=== PATIENT | male | born 1955 | race Caucasian/White ===

== ENCOUNTER 2019-03-23 15:41 | Outpatient (CLI) | payer BC ==
--- NOTE | 2019-03-23 16:15 | RAD ---
2 view chest: [03/23/2019] Comparion:None available HISTORY: Shortness of breath FINDINGS: There is mild increased linear interstitial density with pulmonary hyperinflation, evidence of COPD in the proper clinical setting. No pneumothorax, pleural fluid, lobar consolidation, or alveolar edema. IMPRESSION: Chronic-appearing findings as described above. No focal consolidation or alveolar edema.
== END 2019-03-23 15:42 | disposition home or self-care (01) ==
LOC: SCSRAD 15:41
PROVIDERS: ATTEND Family Medicine
DX: R06.00 Dyspnea, unspecified (principal); J44.9 Chronic obstructive pulmonary disease, unspecified
CPT/HCPCS: 71046

== ENCOUNTER 2019-06-04 12:36 | Outpatient (CLI) | payer BC ==
--- NOTE | 2019-06-04 13:08 | RAD ---
CHEST TWO VIEWS: HISTORY: Dyspnea. COMPARISON: 03/23/2019 FINDINGS: The lungs are mild hyperinflated. 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 The aortic contour is mildly tortuous. Chronic appearing superior and inferior endplate compression d eformities of the mid and upper thoracic spine. IMPRESSION: 1. No acute intrathoracic abnormality. 2. Mild lung hyperinflation suggesting obstructive pulmonary disease. POS: [facility]
== END 2019-06-04 12:37 | disposition home or self-care (01) ==
LOC: RAD 12:36
PROVIDERS: ATTEND Internal Medicine Critical Care Medicine
DX: R06.00 Dyspnea, unspecified (principal); R91.8 Other nonspecific abnormal finding of lung field
CPT/HCPCS: 71046

== ENCOUNTER 2022-12-09 17:16 | Emergency (ER) | payer BC, MEDICARE ==
[2022-12-09 17:48] LABS: #Basophils 0.1 thou/uL (0.0-0.2); #Eosinphils 0.3 thou/uL (0.0-0.7); #Monocytes 0.5 thou/uL (0.11-0.59); #Neutrophils 4.4 thou/uL (1.40-6.50); %Basophils 0.8 % (0.0-1.0); %Eosinophils 3.7 % (0.0-10.0); %Lymphocytes 27.4 % (21.0-51.0); %Monocytes 7.3 % (0.0-10.0); %Neutrophils 60.4 % (42.0-75.0); Hematocrit 46.2 % (42.0-52.0); Hemoglobin 15.6 g/dL (14.0-18.0); Mean Corpuscular HGB CONC 33.8 g/dL (32.0-36.0); Mean Corpuscular Hemoglobin 30.5 pg (27.0-31.0); Mean Corpuscular Volume 90.4 fl (78.0-98.0); Mean Platelet Volume 9.4 fL (7.4-10.4); Platelet Count 244 10x3/uL (130-400); RBC Distribution Width 12.4 % (11.5-14.5); Red Blood Cell (RBC) Count 5.11 mill/uL (4.70-6.10); White Blood Cell (WBC) Count 7.3 10x3/uL (4.8-10.8)
[2022-12-09] MEDS ORDERED: Aspirin Chewable 81 MG TAB ONE (17:52)
[2022-12-09] MEDS ORDERED: Nitroglycerin 2% Ointment 1 INCH/1 GM Packet ONE (17:52)
[2022-12-09] MEDS ORDERED: Mag-Al 1200 mg/1200 mg/30 ML UDCUP ONE ×2 (17:54→17:55)
[2022-12-09 18:16] LABS: ALT (SGPT) 17 U/L (8-55); AST (SGOT) 17 U/L (5-34); Albumin 4.2 g/dL (3.4-4.8); Alkaline Phosphatase 62 U/L (40-110); Anion Gap 12 mmol/L (10-20); BUN (Urea Nitrogen) 17 mg/dL (8.4-25.7); Bilirubin, Total 0.4 mg/dL (0.2-1.2); Calc. Creatinine Clearance 0 mL/min (70-130); Carbon Dioxide 27 mmol/L (23-31); Chloride 102 mmol/L (98-107); Estimated GFR 98; Globulin 2.7 g/dL (2.4-3.5); Glucose 108 mg/dL (80-115); Potassium 3.8 mmol/L (3.5-5.1); Protein, Total 6.9 g/dL (5.8-8.1); Sodium 137 mmol/L (136-145)
== END 2022-12-09 18:18 | disposition left against medical advice (07) ==
LOC: ERS 17:16
DX: R07.89 Other chest pain (principal); E11.9 Type 2 diabetes mellitus without complications; F17.210 Nicotine dependence, cigarettes, uncomplicated; I25.2 Old myocardial infarction; Z79.82 Long term (current) use of aspirin; Z79.84 Long term (current) use of oral hypoglycemic drugs
CPT/HCPCS: 71045; 80053; 83880; 84484; 85025; 93005

== ENCOUNTER 2023-03-29 10:54 | Observation (INO) | payer BC, MEDICARE ==
[2023-03-29] MEDS ORDERED: Iopamidol-370 76% 500 ML MDV (1 ML CHARGE) ONE (11:19)
[2023-03-29 11:53] VITALS: BMI 22.9
[2023-03-29] MEDS ORDERED: Acetaminophen 325 MG TAB PO PRN (12:42)
[2023-03-29] MEDS ORDERED: HumaLOG 300 UNITS/3 ML VIAL SC PRN (12:45)
[2023-03-29] MEDS ORDERED: Dextrose 5% in Water 1,000 ML IV PRN (12:45)
[2023-03-29] MEDS ORDERED: Dextrose 50% Abboject 50 ML SYRINGE SLOW IVP PRN (12:45)
[2023-03-29] MEDS ORDERED: Glucagon 1 MG/ML KIT IM PRN (12:45)
[2023-03-29 16:33] VITALS: BP 165/84; TEMP 97.4
== END 2023-03-29 17:57 | disposition home or self-care (01) ==
LOC: MSONC 11:31
PROVIDERS: ADMIT Internal Medicine; ATTEND Internal Medicine
DX: R42 Dizziness and giddiness (principal); E11.9 Type 2 diabetes mellitus without complications; I25.10 Atherosclerotic heart disease of native coronary artery without angina pectoris; I10 Essential (primary) hypertension; E78.5 Hyperlipidemia, unspecified; Z79.82 Long term (current) use of aspirin; Z79.84 Long term (current) use of oral hypoglycemic drugs; Z79.899 Other long term (current) drug therapy; Z96.611 Presence of right artificial shoulder joint; Z95.5 Presence of coronary angioplasty implant and graft
CPT/HCPCS: 36416; 71260; 74177; G0378; J1815; Q9967

== ENCOUNTER 2023-04-12 10:43 | Outpatient (CLI) | payer BC, MEDICARE ==
[2023-04-12] MEDS ORDERED: Magnevist 469MG/ML 20 ML VIAL ONE (14:18)
== END 2023-04-12 10:44 | disposition home or self-care (01) ==
LOC: MRI 10:43
PROVIDERS: ATTEND Family Medicine
DX: R90.89 Other abnormal findings on diagnostic imaging of central nervous system (principal)
CPT/HCPCS: 70553

== ENCOUNTER 2024-12-21 13:58 | Outpatient (CLI) | payer BC, MEDICARE ==
[2024-12-21 15:22] LABS: Estimated GFR - POC 72.0
== END 2024-12-21 13:59 | disposition home or self-care (01) ==
LOC: SCSMRI 13:58
PROVIDERS: ATTEND Otolaryngology Plastic Surgery within the Head & Neck
DX: H90.3 Sensorineural hearing loss, bilateral (principal); G93.89 Other specified disorders of brain
CPT/HCPCS: 36415; 70553; 76376; 82565